=== PATIENT | male | born 1995 | race Caucasian/White ===

== ENCOUNTER 2016-07-20 17:43 | Emergency (ER) | payer OTHER ==
[2016-07-20 17:48] VITALS: BP 125/74; PULSE 66; TEMP 98; BMI 25.0
--- NOTE | 2016-07-20 18:44 | PDOC ---
History of Present Illness - General Chief Complaint: Lightheaded Stated Complaint: DIZZY Time Seen by Provider: 07/20/16 18:16 History Source: Patient Exam Limitations: No Limitations - History of Present Illness Initial Comments: 07/20/16 18:42 21 year old male with no medical or surgical history present with reports of lightheadedness, shortness of breath and anxiety after drinking isopure whey protein shake today. States symptoms lasted for less than 5 minutes and resolved on its own but still felt a little concerned. Admit to only eating a salad this am, having one 8 oz shaked, drinking only one bottle of water (16 oz ) all day. State he does not have time to eat when at work. He has no present symptoms. Severity: mild Modifying Factors: improves with: other (symptoms self limiting) Associated Symptoms: reports: denies symptoms Aspirin Received prior to arrival: Yes: no aspirin today Asa Contraindications(Core Measure): No: Allergy Beta Rasheed Contraindications(Core Measure): Yes: Not Prescribed Past History - Travel Traveled outside of the country in the last 30 days: No Close contact w/someone who was outside of country & ill: No - Past Medical History Allergies/Adverse Reactions: Allergies Allergy/AdvReac Type Severity Reaction Status Date / Time No Known Allergies Allergy Verified 07/20/16 17:48 Other medical history: DENIES - Surgical History Abdominal Surgery: Yes (HERNIA) - Psycho/Social/Smoking Cessation Hx Suicidal Ideation: No Smoking History: Never smoked Information on smoking cessation initiated: No Review of Systems - Review of Systems Able to Perform ROS?: Yes Is the patient limited Chadian proficient: No Constitutional: No: Chills, Fever HEENTM: No: Nose Congestion, Tinnitus, Nose Bleeding, Hearing Loss, Throat Pain , Throat Swelling, Mouth Pain Respiratory: No: Cough, Orthopnea, Shortness of Breath, SOB with Exertion, SOB at Rest, Productive cough Cardiac (ROS): Yes: Lightheadedness. No: Chest Pain, Palpitations, Syncope ABD/GI: Yes: Nausea. No: Abd. Pain w/ defecation, Blood Streaked Bowels, Constipated, Difficulty Swallowing, Poor Appetite, Poor Fluid Intake, Vomiting, Indigestion, Abdominal cramping : No: Burning, Hematuria, Incontinence, Pain, Urgency Musculoskeletal: No: Muscle Pain, Muscle Weakness Integumentary: No: See HPI, Dryness, Erythema, Flushing, Sweating Psychiatric: No: Frequent Crying, Mood Swings Endocrine: No: Intolerance to Heat, Increased Hunger, Increased Urine, Unexplained Weight Gain *Physical Exam - Vital Signs Last Vital Signs Temp Pulse Resp BP Pulse Ox 98 F 66 18 125/74 98 07/20/16 17:45 07/20/16 17:45 07/20/16 17:45 07/20/16 17:45 07/20/16 17:45 - Physical Exam General Appearance: Yes: Nourished, Appropriately Dressed. No: Apparent Distress HEENT: positive: EOMI, PAULINE, TMs Normal, Pharynx Normal Neck: positive: Supple. negative: Lymphadenopathy (R), Lymphadenopathy (L) Respiratory/Chest: positive: Lungs Clear, Normal Breath Sounds. negative: Respiratory Distress, Accessory Muscle Use Cardiovascular: positive: Regular Rhythm, Regular Rate, S1, S2 Extremity: positive: Normal Capillary Refill, Normal Inspection Neurologic: positive: drapery head former II-XII NML intact, Fully Oriented, Alert, Normal Response, Motor Strength 10/31 Medical Decision Making - Medical Decision Making 07/20/16 18:46 21 year old male with no significant medical or surgical history has no symptoms just reports of palpitations after drinking protein shake discussed healthy dieting and the importants of hydration and a healthy diet -informed to stop using whey protein *DC/Admit/Observation/Transfer Diagnosis at time of Disposition: No diagnosis - Discharge Dispostion Disposition: HOME Condition at time of disposition: Good Admit: No - Referrals Referrals: Yarely Farr MD [Primary Care Provider] - - Patient Instructions Printed Discharge Instructions: The Best Diet for You Additional Instructions: Please eat portion control, balanced meals daily. Include fruits and vegetables and healty proteins. Do not drink any more of the isopure whey protein. When dieting, hydration is important. - Post Discharge Activity Work/School Note: Back to Work
== END 2016-07-20 18:56 | disposition home or self-care (01) ==
LOC: JERFT 17:43
DX: Z04.8 Encounter for examination and observation for other specified reasons (principal)
CPT/HCPCS: 99281-25

== ENCOUNTER 2016-07-31 22:24 | Emergency (ER) | payer OTHER ==
[2016-07-31 22:45] VITALS: BP 137/80; PULSE 67; TEMP 98.2; BMI 25.9
--- NOTE | 2016-07-31 23:01 | PDOC ---
[id number] 07/31/16 22:34 07/31/16 22:34 07/31/16 22:34 07/31/16 22:34 07/31/16 22:34 ED Treatment Course - LABORATORY CBC & Chemistry Diagram: 07/31/16 23:50 07/31/16 23:50 Medical Decision Making - Medical Decision Making 07/31/16 23:01 agree with care from LIZA Weinstein *DC/Admit/Observation/Transfer Diagnosis at time of Disposition: Right upper quadrant abdominal pain, Elevated bilirubin - Discharge Dispostion Disposition: HOME - Referrals Referrals: Andres Rivas DO [Staff Physician] - 1 week - Patient Instructions Printed Discharge Instructions: DI for Abdominal Pain-Adult Additional Instructions: Discharge Instructions: -Your bilirubin was elevated to 1.5 -The ultrasound of your gallbladder was normal. -Please follow up with your own GI doctor or Dr. Rivas within 1 week -Take Motrin for pain if needed with food -Return to the ER with any worsening or concerning symptoms.
--- NOTE | 2016-07-31 23:39 | PDOC ---
History of Present Illness - General Chief Complaint: Pain Stated Complaint: ABD PAIN Time Seen by Provider: 07/31/16 22:58 History Source: Patient Exam Limitations: No Limitations - History of Present Illness Initial Comments: CHIEF COMPLAINT: 21 y/o afebrile male with no significant PMH c/o right upper abdominal pain for the past few hours. HISTORY OF PRESENT ILLNESS: The patient states his doctor told him he has a high bilirubin and to avoid eating greasy foods. He states he tried to decrease his greasy food intake but he still eats lots of fried foods. He states he ate salami this afternoon and a few hours afterwards developed right upper abdominal pain. He denies f/c, n/v/d, CP, SOB, back pain, hematuria, dysuria. Vital signs on arrival are within normal limits. REVIEW OF SYSTEMS: GENERAL/CONSTITUTIONAL: No fever/chills. No weakness. No weight change. HEAD, EYES, EARS, NOSE AND THROAT: No change in vision. No ear pain or discharge. No sore throat. CARDIOVASCULAR: No chest pain or shortness of breath. RESPIRATORY: No cough, wheezing, or hemoptysis. GASTROINTESTINAL: +right upper abd pain. No nausea, vomiting, diarrhea. GENITOURINARY: No dysuria, frequency, or change in urination. MUSCULOSKELETAL: No joint or muscle swelling or pain. No neck or back pain. SKIN: No rash or easy bruising. NEUROLOGIC: No headache, vertigo, loss of consciousness, or loss of sensation. PHYSICAL EXAM: GENERAL: The patient is awake, alert, and fully oriented, in no acute distress. HEAD: Normal with no signs of trauma. ENT: Pupils equal, round and reactive to light, extraocular movements intact, sclera anicteric, conjunctiva clear. Neck supple. LUNGS: Clear to auscultation bilaterally. Normal excursion. No respiratory distress or use of accessory muscles. CV: RRR, S1/S2, no MRG. Cap refill < 2 sec. ABDOMEN: Soft, non-distended, TTP of RUQ with positive Rivera's sign and passive guarding. No rebound or rigidity. EXTREMITIES: Normal range of motion, no edema. NEUROLOGICAL: Normal speech, normal gait. CN II-XII grossly intact. PSYCH: Normal mood, normal affect. SKIN: Warm, dry, normal turgor, no rashes or lesions noted. Past History - Past Medical History Allergies/Adverse Reactions: Allergies Allergy/AdvReac Type Severity Reaction Status Date / Time No Known Allergies Allergy Verified 07/31/16 22:33 Home Medications: Ambulatory Orders NK [No Known Home Medication] 07/31/16 - Surgical History Abdominal Surgery: Yes (HERNIA) - Psycho/Social/Smoking Cessation Hx Suicidal Ideation: No Smoking History: Never smoked Number of Cigarettes Smoked Daily: 0 Information on smoking cessation initiated: No Hx Alcohol Use: Yes Drug/Substance Use Hx: No *Physical Exam - Vital Signs Last Vital Signs Temp Pulse Resp BP Pulse Ox 98.2 F 67 14 137/80 98 07/31/16 22:34 07/31/16 22:34 07/31/16 22:34 07/31/16 22:34 07/31/16 22:34 ED Treatment Course - LABORATORY CBC & Chemistry Diagram: 07/31/16 23:50 07/31/16 23:50 Medical Decision Making - Medical Decision Making A/P: 21 y/o male with RUQ abd pain. Will r/o cholecystitis. Plan is as follows: 1. Labs 2. Gallbladder ultrasound Gallbladder Ultrasound FINDINGS: There are no stones or sludge visualized in the gallbladder. The gallbladder wall is normal in thickness measuring 1.8 mm. No pericholecystic fluid. Presence or absence of a sonographic Rivera's sign was not reported The common bile duct is within normal limits measuring 3.9 mm. There is a small non-shadowing echogenic focus in the lower pole of the right kidney measuring 3-4 mm possibly a nonobstructing stone. The right kidney is otherwise unremarkable The liver, pancreas and visualized portions of the abdominal aorta and IVC are unremarkable Bilirubin - 1.5. The patient admits to history of elevated bilirubin. Will give Toradol and discharge to home with instructions for GI follow up. Pt instructed to return to the ER with any worsening or concerning symptoms. The patient verbalizes understanding of all instructions, has no further questions and is awaiting discharge. *DC/Admit/Observation/Transfer Diagnosis at time of Disposition: Right upper quadrant abdominal pain, High bilirubin - Discharge Dispostion Disposition: HOME Condition at time of disposition: Good Admit: No - Referrals Referrals: Andres Rivas DO [Staff Physician] - 1 week - Patient Instructions Printed Discharge Instructions: DI for Abdominal Pain-Adult Additional Instructions: Discharge Instructions: -Your bilirubin was elevated to 1.5 -The ultrasound of your gallbladder was normal. -Please follow up with your own GI doctor or Dr. Rivas within 1 week -Take Motrin for pain if needed with food -Return to the ER with any worsening or concerning symptoms.
[2016-08-01 00:14] LABS: BASOPHIL 0.5 % (0-2.0); EOSINOPHIL 1.2 % (0-4.5); MCH 29.4 pg (25.7-33.7); MCHC 33.4 g/dl (32.0-35.9); MEAN CELL VOLUME 88.3 fl (80-96); MEAN PLT VOLUME 8.4 fl (7.5-11.1); NEUTROPHILS 63.4 % (42.8-82.8); PLATELET COUNT 257 K/MM3 (134-434); RDW 13.6 % (11.9-15.9); WHITE BLOOD COUNT 9.7 K/mm3 (4.0-10.0)
[2016-08-01 00:33] LABS: ALBUMIN 4.5 g/dl (3.4-5.0); ANION GAP 10 (8-16); CO2 27 mmol/L (21-32); CREATININE 0.9 mg/dL (0.7-1.3); GLUCOSE,RANDOM 85 mg/dL (74-106); SGPT/ALT 30 U/L (12-78)
[2016-08-01 00:34] LABS: ALK PHOS 107 U/L (45-117); BILIRUBIN,TOTAL 1.5 mg/dL (0.2-1.0); TOT PROT 8.1 g/dl (6.4-8.2)
[2016-08-01 00:35] LABS: SGOT/AST 18 U/L (15-37)
[2016-08-01] MEDS ORDERED: KETOROLAC TROMETHAMINE 30 MG/1 ML VIAL IVPUSH ONE (01:39)
[2016-08-01] MEDS ORDERED: KETOROLAC TROMETHAMINE 30 MG/1 ML VIAL ONE (02:04)
== END 2016-08-01 02:18 | disposition home or self-care (01) ==
LOC: JER 22:24
PROC: 3E0333Z Introduction of Anti-inflammatory into Peripheral Vein, Percutaneous Approach (ICD-10-PCS; principal; 2016-07-31)
DX: R10.11 Right upper quadrant pain (principal); E80.6 Other disorders of bilirubin metabolism
CPT/HCPCS: 36415; 76705-TC; 80053; 83690; 85025; 99282-25

== ENCOUNTER 2019-07-15 22:06 | Emergency (ER) | payer OTHER ==
[2019-07-15 22:11] VITALS: BP 126/78; PULSE 94; TEMP 101.3; BMI 29.2
--- NOTE | 2019-07-16 00:13 | PDOC ---
History of Present Illness - General Chief Complaint: Diarrhea Stated Complaint: DIARRHEA Time Seen by Provider: 07/16/19 00:12 History Source: Patient Exam Limitations: No Limitations - History of Present Illness Initial Comments: 07/16/19 00:13 PCP: Ez Cristina HPI: 24yo M no significant PMH presenting with sore throat for 3 days. Patient reports worsening sore throat with fevers, pain with swallowing, one episode of loose stool. Denies chest pain, SOB, abdominal pain, constipation. Denies known sick contacts or recent travel. Patient denies cough, endorses occasional headache, none currently. Has not taken any medications at home. Progressively worsened over past three days and decided to be evaluated because of continued fevers. Tolerating PO with discomfort. No joint pains or dysuria. Reports having no symptoms prior to 3 days ago. All: NKDA Meds: Denies PMH: Denies PSH: Denies Past History - Past Medical History Allergies/Adverse Reactions: Allergies Allergy/AdvReac Type Severity Reaction Status Date / Time No Known Allergies Allergy Verified 07/15/19 22:11 Home Medications: Ambulatory Orders Amoxicillin - [Amoxicillin 500mg Capsule -] 500 mg PO BID 10 Days #20 capsule COPD: No - Surgical History Abdominal Surgery: Yes (HERNIA) - Psycho Social/Smoking Cessation Hx Smoking History: Never smoked Number of Cigarettes Smoked Daily: 0 Hx Alcohol Use: Yes Drug/Substance Use Hx: No Substance Use Type: None Review of Systems - Review of Systems Able to Perform ROS?: Yes Is the patient limited Vietnamese proficient: Yes Constitutional: Yes: Chills, Fever. No: Diaphoresis, Night Sweats, Weakness HEENTM: Yes: Throat Pain, Throat Swelling. No: Recent change in vision, Nose Congestion, Dental Problems Respiratory: No: Cough, Orthopnea, Shortness of Breath, Wheezing Cardiac (ROS): No: Chest Pain, Irregular Heart Rate, Lightheadedness, Chest Tightness ABD/GI: Yes: Diarrhea (one episode loose stool), Nausea (when drinking water). No: Constipated, Poor Appetite, Poor Fluid Intake, Vomiting : No: Burning, Dysuria, Frequency Musculoskeletal: Yes: Muscle Pain (body aches). No: Muscle Weakness Integumentary: No: Erythema, Pallor, Pruritus, Rash Neurological: Yes: Headache. No: Numbness, Tingling, Weakness Psychiatric: No: Stressors, Change in Appetite Hematologic/Lymphatic: No: Anemia, Blood Clots, Easy Bleeding All Other Systems: Reviewed and Negative *Physical Exam - Vital Signs Last Vital Signs Temp Pulse Resp BP Pulse Ox 101.3 F H 94 H 18 126/78 98 07/15/19 22:08 07/15/19 22:08 07/15/19 22:08 07/15/19 22:08 07/15/19 22:08 - Physical Exam 07/16/19 00:50 Vitals reviewed, Febrile to 101.3 GEN: Well appearing, appears stated age, NAD, comfortable. AAOx3. HEENT: NCAT, EOMI, PERRL. Throat grossly erythematous with tonsilar swelling and exudates. +LAD along neck. Tender anterior neck. CV: RRR, S1/S2, no murmurs / rubs / gallops appreciated. LUNG: CTAB, normal work of breathing. No wheezes, rales, rhonchi. No cough. Speaking full sentences. GI: Soft, NTND, no guarding, no rebound. No masses. EXTREMITIES: 2+ distal pulses. No LE edema. No obvious deformities of all extremities. SKIN: Warm, dry, no rashes appreciated, non-jaundiced. PSYCH: Normal mood and affect. Cooperative and appropriate. NEURO: CN grossly intact. Moving all extremities well. Normal strength and sensation grossly. Medical Decision Making - Medical Decision Making 07/16/19 00:53 24yo M no significant PMH presenting with sore throat for 3 days. Exam concerning for step throat. Centor Score 4 (51-53% likelihood). Will treat empirically. - Rapid Strep Swab - Motrin 600 - Decadron 10 - Amox 500 Dispo: Home Plan for PCP followup on Thursday Amoxicillin 500mg BID Rx sent 07/16/19 02:08 GC Culture Sent Pt discharged Discharge - Discharge Information Problems reviewed: Yes Clinical Impression/Diagnosis: Strep pharyngitis Condition: Improved Disposition: HOME - Admission No - Additional Discharge Information Prescriptions: Amoxicillin - [Amoxicillin 500mg Capsule -] 500 mg PO BID 10 Days #20 capsule - Follow up/Referral Referrals: Ez Cristina MD [Primary Care Provider] - - Patient Discharge Instructions Patient Printed Discharge Instructions: DI for Strep Throat Additional Instructions: You were seen and evaluated for your sore throat. Please take Motrin as directed on the package label for your fever and pain. A prescription for an antibiotic has been sent to your pharmacy, please pick these up and take them twice daily for 10 days. Follow up with your primary care doctor early next week, call first thing Thursday to schedule and appointment. Return to the ED for any new or concerning symptoms including: worsening throat swelling, difficulty breathing, inability to tolerate water or medications by mouth. Please return if you don't have improvement in 48 hours. Usted fue visto y evaluado por cochran dolor de garganta. [place] Motrin roderick se indica en la etiqueta del paquete para cochran fiebre y dolor. Se cole enviado nilda receta para un antibitico a cochran farmacia, recjala y tmela dos veces al da lex 10 harrison. Jose un seguimiento con cochran mdico de atencin primaria a principios de la prxima semana, llame a primera hora el lunes para programar nilda albina. Regrese al servicio de urgencias por cualquier sntoma nuevo o preocupante que incluya: empeoramiento de la inflamacin de la garganta, dificultad para respirar, incapacidad para tolerar el agua o los medicamentos por va oral. Regrese si no tiene mejoras en 48 horas. Print Language: ARABIC - Post Discharge Activity
[2019-07-16] MEDS ORDERED: AMOXICILLIN 500 MG CAPSULE (FP) PO ONE (00:35)
[2019-07-16] MEDS ORDERED: IBUPROFEN 600 MG TABLET (FP) PO ONE ×2 (00:35→00:46)
[2019-07-16] MEDS ORDERED: DEXAMETHASONE SOD PHOSPHATE 10 MG/1 ML VIAL ONE (00:45)
[2019-07-16] MEDS ORDERED: DEXAMETHASONE 4 MG TABLET (FP) PO ONE (00:45)
[2019-07-16] MEDS ORDERED: AMOXICILLIN 250 MG CAPSULE ONE (00:46)
--- NOTE | 2019-07-16 01:06 | PDOC ---
Documentation entered by Monika Major SCRIBE, acting as scribe for Lalitha Ace MD. Lalitha Ace MD: This documentation has been prepared by the dustinibe, Monika Major SCRIBE, under my direction and personally reviewed by me in its entirety. I confirm that the documentation accurately reflects all work, treatment, procedures, and medical decision making performed by me. Attending Attestation - Resident Resident Name: Abdirahman Asher - ED Attending Attestation I have performed the following: I have examined & evaluated the patient, The case was reviewed & discussed with the resident, I agree w/resident's findings & plan, Exceptions are as noted - HPI HPI: 07/16/19 00:58 The patient is a 24-year-old male with no reported past medical history who presents to the emergency department with 3 days of sore throat, fever, and loose stool. The patient reports he is able to tolerate PO without nausea or vomiting. The patient denies sick contact, rash, or swelling. did not take anything for pain prior to arrival. no sick contacts. no travel. 07/16/19 01:00 - Physicial Exam PE: 07/16/19 01:00 awake alert bilat tonsillar exudates, erythema. lungs clear bilat heart rrr on mrg abd soft nt nd ext wwp no edema. no calf tenderness. - Medical Decision Making 07/16/19 01:03 24 yo male with exudative tonssilitis differential mono, strept or other causes such as gonoccal. strept swab sent. pt only sick three days unlikely mono will resul. yuri treat with amoxicillin. given decadron oral for pain. dc home.
== END 2019-07-16 02:38 | disposition home or self-care (01) ==
LOC: JER 22:06
DX: J02.0 Streptococcal pharyngitis (principal); B95.5 Unspecified streptococcus as the cause of diseases classified elsewhere
CPT/HCPCS: 87070; 87081; 87880; 99281-25